=== PATIENT | male | born 1955 | race Caucasian/White ===

== ENCOUNTER 2016-06-25 08:58 | Emergency (ER) | payer SELFPAY ==
[2016-06-25 09:12] VITALS: BP 136/82
--- NOTE | 2016-06-25 09:31 | EDM.PDOC ---
ED HPI Trauma - General Chief Complaint: Upper Extremity Injury/Pain Stated Complaint: Right shoulder pain Time Seen by Provider: 06/25/16 09:20 Source: Reports: Patient, RN notes reviewed History Limitations: Reports: No limitations - History of Present Illness INITIAL COMMENTS - FREE TEXT/NARRATIVE: 60 year old male presents to the ED with chief complaint of right shoulder pain. The pain is located to his posterior right shoulder and radiates down his arm. No numbness or tingling. He has a history of bilateral rotator cuff repair. 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 He is not sure how he landed. He also has right elbow pain, left shoulder pain,and right knee pain. No LOC, neck pain, chest pain, shortness of breath, abdominal pain, back pain, hip pain. His right knee is intermittently sore. He is able to bear weight without difficulty. He has taken naproxyn with minimal pain relief. Allergies/ADRs: Allergies atenolol Allergy (Verified 06/25/16 09:17) Other Home Medications: Ambulatory Orders Acetaminophen/HYDROcodone [Chester 325-5 MG] 1 tab PO Q4H PRN #20 tablet 06/25/16 Aspirin [Ecotrin] 325 mg PO DAILY 06/25/16 [Confirmed 06/25/16] Enalapril [Vasotec] 20 mg PO DAILY 06/25/16 [Confirmed 06/25/16] Naproxen 500 mg PO BID #30 tablet 06/25/16 Omeprazole Magnesium [Prilosec Otc] 20 mg PO DAILY 06/25/16 [Confirmed 06/25/16] Past Medical History Cardiovascular History: Reports: Hypertension Gastrointestinal History: Reports: GERD Musculoskeletal History: Reports: Other (see below) Other Musculoskeletal History: disc replacement to the neck - Past Surgical History GI Surgical History: Reports: Appendectomy Musculoskeletal Surgical History: Reports: Other (see below) Other Musculoskeletal Surgeries/Procedures:: bilateral rotator cuff surgery Social & Family History - Tobacco Use Smoking Status *Q: Never Smoker - Caffeine Use Caffeine Use: Reports: Coffee, Energy drinks, Tea - Recreational Drug Use Recreational Drug Use: No Review of Systems - Review of Systems Review Of Systems: See Below Constitutional: Reports: no symptoms. Denies: chills, fever Respiratory: Reports: No Symptoms. Denies: Shortness of Breath Cardiovascular: Reports: no symptoms. Denies: chest pain GI/Abdominal: Reports: No symptoms. Denies: Abdominal pain Musculoskeletal: Reports: shoulder pain, arm pain, joint pain. Denies: neck pain, back pain Skin: Reports: no symptoms. Denies: bruising, wound Neurological: Reports: No Symptoms. Denies: Headache, Numbness, Tingling Trauma Exam - Physical Exam Exam: See Below Exam Limited By: No limitations General Appearance: Reports: alert, WD/WN, no apparent distress Head: Reports: atraumatic, normocephalic Neck: Reports: non-tender, full range of motion, normal alignment, normal inspection Respiratory Exam: Reports: no respiratory distress, lungs clear, normal breath sounds, chest non-tender Cardiovascular: Reports: regular rate, rhythm Back: Reports: full range of motion, normal inspection. Denies: vertebral tenderness Extremities: Reports: other (Right shoulder is tender with palpation to glenohumeral joint and with palpation to posterior shoulder. He has very limited ROM with abduction due to pain. He has pain to his deltoid and pain with palpation to the mid-upper humerus. He has full ROM to the right elbow with no bony point tenderness. Right forearm, wrist, and hand exam are unremarakble. CMS intact. Left shoulder is non-tender to palpation with full ROM. Right knee exam reveals very minimal swelling. Non-tender to palpation. Patient is able to bear weight. CMS intact.) Course - Vital Signs Last Recorded V/S: Last Vital Signs Temp 97.9 F 06/25/16 09:11 Pulse 80 06/25/16 09:11 Resp 20 06/25/16 09:11 BP 136/82 06/25/16 09:11 Pulse Ox 94 L 06/25/16 09:11 - Orders/Labs/Meds Orders: Active Orders 24 hr Category Date Time Status Shoulder Comp Rt [CR] Stat Exams 06/25/16 09:30 Taken Meds: Medications Discontinued Medications Generic Name Dose Route Start Last Admin Trade Name Nicole PRN Reason Stop Dose Admin Acetaminophen 975 mg 06/25/16 10:06 06/25/16 10:10 Tylenol PO 06/25/16 10:07 975 mg NOW ONE Administration Ketorolac Tromethamine 60 mg 06/25/16 10:06 06/25/16 10:12 Toradol IM 06/25/16 10:07 60 mg ONETIME ONE Administration - Re-Assessments/Exams Free Text/Narrative Re-Assessment/Exam: Right shoulder x-ray is negative for bony abnormality. Radiologist report is pending. Will prescribe pain medication. Patient is new to the area but would prefer to follow-up here in [place]. Will have him f/u with ortho due to possible soft tissue injuries of knee and shoulder. Departure - Departure Time of Disposition: 10:06 Disposition: Home, Self-Care 01 Condition: good Clinical Impression: Right shoulder pain Qualifiers: Chronicity: acute Qualified Code(s): M25.511 - Pain in right shoulder Right knee pain Qualifiers: Chronicity: acute Qualified Code(s): M25.561 - Pain in right knee Prescriptions: Acetaminophen/HYDROcodone [Chester 325-5 MG] 1 tab PO Q4H PRN #20 tablet PRN Reason: Pain Naproxen 500 mg PO BID #30 tablet Instructions: Knee Pain, Shoulder Pain, Etnt-mg-Ouim Referrals: PCP,None [Primary Care Provider] - Forms: ED Department Discharge, Return to Work/School Form Additional Instructions: Rest and ice painful joints Héctor wrap or neopene knee brace to right knee Naproxyn 500mg twice a day with food (breakfast and supper) No Ibuprofen while taking Naproxyn No aspirin while taking Naproxyn Tylenol 650mg every 6 hours for mild pain not relieved by Naproxyn Chester 1 tab every 4 hours as needed for more severe pain Do not exceed 3000mg of Tylenol per day (Chester contains 325mg of Tylenol in each tab) Follow-up with one of our orthopedic surgeons next week: Dr. Shukla [phone] Dr. Ann [phone] - My Orders Last 24 Hours: My Active Orders 06/25/16 09:30 Shoulder Comp Rt [CR] Stat - Assessment/Plan Last 24 Hours: My Active Orders 06/25/16 09:30 Shoulder Comp Rt [CR] Stat
[2016-06-25] MEDS ORDERED: Ketorolac 60 MG/2 ML SDV IM ONE (10:06)
[2016-06-25] MEDS ORDERED: Acetaminophen 325 MG Tab PO ONE (10:06)
--- NOTE | 2016-06-26 10:34 | CR ---
Right shoulder: Three views of the right shoulder were obtained. Comparison: No previous study. Slight degenerative change seen within the inferior glenohumeral joint. Acromioclavicular joint appears within normal limits. Previous cervical spine surgery is noted. No acute fracture or other bony abnormality is seen. Impression: 1. Slight degenerative change within the inferior right acromioclavicular joint. 2. Previous cervical spine surgery. 3. Nothing acute is identified on three-view right shoulder study. Diagnostic code #2
== END 2016-06-25 10:22 | disposition home or self-care (01) ==
LOC: JD.ED 08:58
DX: M25.511 Pain in right shoulder (principal); M25.561 Pain in right knee; I10 Essential (primary) hypertension; K21.9 Gastro-esophageal reflux disease without esophagitis; Z90.49 Acquired absence of other specified parts of digestive tract; Z88.8 Allergy status to other drugs, medicaments and biological substances; Z79.82 Long term (current) use of aspirin; Z79.899 Other long term (current) drug therapy; Z98.890 Other specified postprocedural states
CPT/HCPCS: 73030; 96372; 99283; A9270; J1885